=== PATIENT | female | born 1995 | race Caucasian/White ===

== ENCOUNTER → 2017-02-10 | Outpatient (CLI) | payer OTHER ==
[~2017-02-10] MED LIST: NEOM10DR9 EACH EAR
[2017-02-10 16:56] VITALS: BP 114/75
--- NOTE | 2017-02-10 16:56 | Urgent Care T Sheet Gen (E) ---
Intake General Temperature (Fahrenheit): 98.4 Pulse: 81 Blood Pressure Systolic: 114 Blood Pressure Diastolic: 75 Respirations: 16 SPO2: 97 Description of Symptoms Patient presents with bilateral ear pain, fullness, and itchiness. Started 3 days ago in the L ear and 1 day ago in the R ear. Does have allergies for which she takes Zyrtec daily. No nasal congestion or cough at this time. States she wears ear buds and ear plugs daily. Respiratory Constitutional Symptoms: No syptoms reported EENTM: Ear painNo Ear discharge Respiratory: No symptoms reported Cardiovascular: No symptoms reported Gastrointestinal/Abdominal: No symptoms reported All Other Systems Reviewed Remaining Systems: All other systems reviewed with negative findings Physical Exam Physical Exam General Appearance: WD/WN No apparent distress Eyes, Ears, Nose, Throat Ex: TMs normal (bilateral external ear canals are red and swollen, L worse than R) Pharynx normal Other (nose is clear) Neck Exam: SuppleNo Lymphadenopathy Respiratory Exam: Lungs clear Normal breath sounds Cardiovascular Exam: Regular rate, rhythm Departure Urgent Care Impression Impression: Primary Impression: Otitis externa Qualified Code: H60.593 - Other noninfective acute otitis externa, bilateral Departure Disposition: HOME OR SELF-CARE Condition: Stable Additional Instructions: I believe the daily use of ear plugs and ear buds is causing otitis externa. The ear canals are both swollen and red. Not much debris however Her allergies appear to be well controlled with the Zyrtec as her nose was fairly clear Return as needed Patient understands DC instructions. All questions were answered. Scripts Neomy Sulf/Polymyx B Sulf/Hc (Cortisporin Otic Suspension)10 Ml Drops.susp4 Drops EACH EAR TID #1 BTL 4 drops in each ear TID x 7 days Prov:JOSE ESQUIVEL 02/10/17 End of report . JOSE ESQUIVEL February 10, 2017 16:56
== END ==
LOC: MHUC 16:37
PROVIDERS: ATTEND Physician Assistant
DX: H60.593 Other noninfective acute otitis externa, bilateral (principal)
CPT/HCPCS: 99203